=== PATIENT | female | born 1990 | race Caucasian/White ===

== ENCOUNTER → 2022-01-13 13:19 | Outpatient (BNVA) | payer OTHER, SELFPAY | PROVIDERS: Visit Provider Obstetrics & Gynecology | DX: Z34.90 Encounter for supervision of normal pregnancy, unspecified, unspecified trimester (principal) | CPT/HCPCS: 80307; 84315; 84443; 85025; 86592; 86762; 86803; 86850; 86900; 87086; 87340; 87491; 87591; 87624; 87661; 87806 ==

== ENCOUNTER → 2022-02-21 13:14 | Outpatient (BNVA) | payer OTHER, SELFPAY | PROVIDERS: Visit Provider Obstetrics & Gynecology | DX: O09.899 Supervision of other high risk pregnancies, unspecified trimester (principal); E03.9 Hypothyroidism, unspecified; Z3A.00 Weeks of gestation of pregnancy not specified | CPT/HCPCS: 84443 ==

== ENCOUNTER → 2022-04-09 10:40 | Outpatient (BNVA) | payer OTHER, SELFPAY | PROVIDERS: Visit Provider Obstetrics & Gynecology | DX: O09.899 Supervision of other high risk pregnancies, unspecified trimester (principal); Z3A.00 Weeks of gestation of pregnancy not specified | CPT/HCPCS: 82950; 84315; 84443; 85025 ==

== ENCOUNTER → 2022-05-05 08:25 | Outpatient (BNVA) | payer OTHER, SELFPAY | PROVIDERS: Visit Provider Obstetrics & Gynecology | DX: O09.899 Supervision of other high risk pregnancies, unspecified trimester (principal); Z3A.00 Weeks of gestation of pregnancy not specified | CPT/HCPCS: 84315; 87086 ==

== ENCOUNTER → 2022-05-19 16:00 | Outpatient (BNVA) | payer OTHER, SELFPAY | PROVIDERS: Visit Provider Obstetrics & Gynecology | DX: O09.899 Supervision of other high risk pregnancies, unspecified trimester (principal); Z3A.00 Weeks of gestation of pregnancy not specified | CPT/HCPCS: 84315; 85025; 87086 ==

== ENCOUNTER → 2022-06-04 15:50 | Outpatient (BNVA) | payer OTHER, SELFPAY | PROVIDERS: Visit Provider Obstetrics & Gynecology | DX: O09.899 Supervision of other high risk pregnancies, unspecified trimester (principal); Z3A.00 Weeks of gestation of pregnancy not specified | CPT/HCPCS: 84315; 87081; 87086 ==

== ENCOUNTER → 2022-06-12 12:00 | Outpatient (BNVA) | payer OTHER, SELFPAY | PROVIDERS: Visit Provider Obstetrics & Gynecology | DX: O09.899 Supervision of other high risk pregnancies, unspecified trimester (principal); Z3A.00 Weeks of gestation of pregnancy not specified | CPT/HCPCS: 84315; 87086 ==

== ENCOUNTER 2022-06-15 09:36 | Inpatient (IN) | payer OTHER, SELFPAY ==
[2022-06-15] VITALS (51 sets, daily range): BP systolic 88–139; BP diastolic 51–98; PULSE 67–121; RESP 16; BMI 39.4
[2022-06-15] MEDS: dextrose 5%-lactated ringers 1,000 ML 125 ML IV (09:58)
[2022-06-15] MEDS: ampicillin 2,000 MG in sodium chloride 0.9% (plus) 50 ML 100 MG IV (09:58)
[2022-06-15 10:22] LABS: Basophils % 0.2 %; Eosinophils # 0.1 10^3/uL (0.0-0.8); Eosinophils % 1.3 %; Hematocrit 35.7 % (37.0-47.0); Lymphocytes # 1.7 10^3/uL (0.8-4.8); Lymphocytes % 16.3 %; Mean Corpuscular HGB Conc 33.6 g/dL (30.0-36.0); Mean Corpuscular Hemoglobin 30.8 pg (28.0-34.0); Mean Corpuscular Volume 91.5 fl (81-99); Mean Platelet Volume 10.8 fL (7.4-10.4); Monocytes # 0.7 10^3/uL (0.2-0.9); Monocytes % 6.9 %; Neutrophils # 7.68 10^3/uL (1.8-7.7); Neutrophils % 74.5 %; Nucleated Red Blood Cells % 0 %; Platelet Count 217 10^3/cmm (130-400); White Blood Count 10.3 10^3/uL (4.0-10.0)
--- NOTE | 2022-06-15 11:05 | PM.OBGYHP ---
Providers/Chief Complaint Admitting Physician: Roxanne Ramos DO Chief Complaint: DECREASED MOVEMENT, PELVIC PAIN AND PRESSURE HPI ER REGISTRAR History of Present Illness Kenyatta Win is a 31 year old female at 37.6wks IUP, patient of Dr. Babb, admitted to labor and delivery with complaints of decreased movement noted at 2:30 AM. Patient also complains of pelvic pain and pressure. She denies vaginal bleeding, but states she has noted her underwear being moist over the last several days. She states she was 4 cm at her last visit. After arrival at labor and delivery and being put on external monitoring patient does note movement. course?diagnosed with hypothyroid by lab, asymptomatic per patient. Was treated with levothyroxine. On initial vaginal exam patient cervix is noted to be 5 cm / 50%/-2 vertex presentation. EFM?category 1, with contractions every 4 to 6 minutes. Present Details : 3 Para: 2 Labs Rubella: Immune RPR: Negative GBS: Positive Review of Systems General: Reports: 10 or more systems reviewed and unremarkable except in HPI and below Medications/Allergies Home Medications Medication Instructions Recorded Confirmed Last Taken Type PNV 153-FA 400 mcg-om3 35 mg-dha 1 tab PO DAILY 01/13/22 06/15/22 06/15/22 07:00 History 25 mg-epa 5 mg-fish oil chew tablet ( Gummies) levothyroxine 50 mcg tablet 50 mcg PO DAILY #90 tabs 03/12/22 06/15/22 06/15/22 07:00 Rx aripiprazole 5 mg tablet (Abilify) 5 mg PO DAILY #90 tabs 05/15/22 06/15/22 06/15/22 07:00 Rx lamotrigine 200 mg tablet 200 mg PO DAILY #90 tabs 05/15/22 06/15/22 06/15/22 07:00 Rx Allergies Allergy/AdvReac Type Severity Reaction Status Date / Time No Known Allergies Allergy Verified 06/12/22 10:57 PFSH ER REGISTRAR PFSH: Medical History History of bipolar disorder No pertinent past medical history neghx: htn,dm,thyroid,dvt/pe PCP: None Psychiatric care Tobacco abuse Surgical History Hx laparoscopic cholecystectomy (~2011) Family History Grandmother Breast cancer Maternal---dx age 62 Grandfather Diabetes Maternal Denies family history of Colon cancer Ovarian cancer Heart disease Hypercholesteremia Hypertension Uterine cancer Thyroid disease Stroke Other Female Reproductive History: Date of Last Menstrual Period: 09/06/21 History History History 3 Term 1 1 Miscarriages/Ectopic 0 Living Children 2 Care PIERCE Calculator Estimated Delivery Date Method Current WG Current Estimate 06/29/22 Ultrasound #1 38w 0d Comments: PIERCE based on 15-week ultrasound. Vitals/I&O/Wt Last Vital Signs Pulse 80 06/15/22 11:01 Resp 16 06/15/22 09:21 BP 107/66 06/15/22 11:01 O2 Del Method 06/15/22 09:38 Weight last 48 hrs Weight 101.151 kg Physical Exam Narrative: 31-year-old female awake and alert no acute distress Const: COMMON NORMALS: patient oriented x3, no limitations, healthy appearing and well nourished HENMT: COMMON NORMALS: normocephalic and moist oral mucous membranes Resp: COMMON NORMALS: normal respiratory effort and clear to auscultation bilaterally Cardio: COMMON NORMALS: regular rate and regular rhythm Back/Pelvis: OTHER: Pelvic exam?as above Extremity: COMMON NORMALS: normal to inspection, no clubbing, cyanosis or edema, no calf tenderness and no pedal edema Neuro: COMMON NORMALS: CN's II-XII intact bilaterally, moves all extremities and deep tendon reflexes 2+ bilaterally Psych: COMMON NORMALS: mental status grossly normal Data 06/15/22 09:45 A&P Assessment and plan (1) GBS (group B Streptococcus carrier), +RV culture, currently : (2) Generalized anxiety disorder: (3) Post-traumatic stress disorder, chronic: (4) History of delivery: (5) Supervision of other high-risk : (6) Hypothyroidism: Plan A. 1. 37.6 weeks IUP in early labor 2. GBS positive 3. Hypothyroidism during 4. History of anxiety 5. History of delivery P. 1. Admit to labor and delivery for management of labor 2. GBS treatment according to protocol Attestations Medical Necessity Statement*: Admission to labor and delivery for management of labor Coding Level of Care Code Acute Associate Quality Engineer for Chg Fwd History Problem Focused Exam Problem Focused Medical Decision Making Straight Forward Diagnoses GBS (group B Streptococcus carrier), +RV culture, currently O99.820 Generalized anxiety disorder F41.1 Post-traumatic stress disorder, chronic F43.12 History of delivery Z87.51 Supervision of other high-risk O09.899 Hypothyroidism E03.9
[2022-06-15] MEDS: ampicillin 1,000 MG in sodium chloride 0.9% (plus) 50 ML 100 MG IV (13:41)
--- NOTE | 2022-06-15 15:05 | P.PN_ITS ---
E BUSINESS PROJECT MANAGER Subjective Labor: Dilation (cm): 5 Effacement (%): 80 Station: -3 Amniotic Membrane Status: Bulging (AROM with clear fluid noted.) Monitor Mode: External Contraction Pattern: Irregular Vitals/I&O/Wt Last Vital Signs Pulse 106 H 06/15/22 15:01 Resp 16 06/15/22 09:21 BP 104/65 06/15/22 15:01 O2 Del Method 06/15/22 09:38 Weight last 48 hrs Weight 101.151 kg Data 06/15/22 09:45 Attestations Medical Necessity Statement*: Management of labor Coding Level of Care Code Acute Metal Milling Machine Operator for g Theresa
[2022-06-15] MEDS: oxytocin 30 UNIT/500 ML BAG IV (16:14)
--- NOTE | 2022-06-15 17:34 | PM.DELIVERY ---
Delivery Note: Date of delivery: June 15, 2022 Pre-delivery diagnoses: 1. 37.6 weeks IUP 2. Active labor 3. GBS positive 4. Hypothyroidism 5. History of anxiety Procedure: Spontaneous vaginal delivery viable male Delivering Physician: Dr. Roxanne Ramos Estimated blood loss (mL): 300 Delivery: 31-year-old female delivered via a viable male OA presentation. Vertex delivered over perineum and after several pushes the anterior followed by the posterior shoulders delivered with the remainder of the baby's body to follow. Spontaneous cry was noted. The umbilical cord was clamped and cut and baby placed on mother's chest for bonding. Nursing evaluation with drying of the infant and bulb suctioning occurred. Cord blood was drawn from the umbilical umbilical cord and handed off. The uterine fundus was massaged and the placenta presented in a Arvizu presentation with trailing membranes. Three-vessel cord was noted. The vaginal vault was explored and a second-degree midline laceration was noted, repaired with 3-0 Vicryl with good approximation. Good hemostasis was noted. The uterus was massaged, noted to be firm with minimal bleeding. Pitocin IV solution was started and a bolus manner after delivery of placenta. Mother and infant are both in stable and satisfactory condition. Apgars 8/9 weight 7 pounds 11 anesthesia?none EBL 300 Post-Delivery Status: Stable doing well History History History 3 Term 1 1 Miscarriages/Ectopic 0 Living Children 2 A&P Assessment and plan (1) GBS (group B Streptococcus carrier), +RV culture, currently : (2) Generalized anxiety disorder: (3) History of delivery: (4) Supervision of other high-risk : (5) Hypothyroidism: Plan A. Spontaneous vaginal delivery viable male at 37.6 weeks gestation. GBS positive P. Routine orders Coding Level of Care Code Acute Industrial Engineer for Chg Fwd History Problem Focused Exam Problem Focused Medical Decision Making Straight Forward Diagnoses GBS (group B Streptococcus carrier), +RV culture, currently O99.820 Generalized anxiety disorder F41.1 History of delivery Z87.51 Supervision of other high-risk O09.899 Hypothyroidism E03.9
[2022-06-15] MEDS: lidocaine 2% INJ 20 mL INJECTION (17:35)
--- NOTE | 2022-06-15 20:10 | PC.NURSE ---
Patient was walking with RN out of bathroom to go to PP room. Patient states I feel dizzy. RN tells patient to have seat in chair and begins to help her sit. Patient kneels in floor and states that she can't get up. RN reassures patient that she is supporting her and patient is maintaining muscle tone and although she feels dizzy will be able to stand and sit in the chair. Patient stands and sits in chair. Vital Signs taken: RR 16, HR 82, BP 107/69. SpO2 98%. RN advises patient she can remain in LDRP room rather than transfer to PP room. PP mattress is applied to bed and linens are changed. Patient states she is now feeling better and is able to get into bed unassisted with RN standing by. RN advises patient to not get up unattended the next time she needs to use the bathroom to ensure she does not feel dizzy in the future. Call light placed within reach.
[2022-06-15] MEDS: ibuprofen 800 mg tablet PO (21:16)
[2022-06-15] MEDS: benzocaine-menthol 78 gm Canister 1 SPRAY TOPICAL (22:29)
[2022-06-16] VITALS (8 sets, daily range): BP systolic 104–114; BP diastolic 63–69; PULSE 72–83; RESP 15–16; TEMP 36.4–36.8
[2022-06-16 06:14] LABS: Hematocrit 31.8 % (37.0-47.0); Hemoglobin 10.4 g/dL (11.5-15.3); Mean Corpuscular HGB Conc 32.7 g/dL (30.0-36.0); Mean Corpuscular Hemoglobin 30.5 pg (28.0-34.0); Mean Corpuscular Volume 93.3 fl (81-99); Mean Platelet Volume 10.9 fL (7.4-10.4); Platelet Count 207 10^3/cmm (130-400); Red Blood Count 3.41 10^6/uL (4.1-5.3); Red Cell Distribution Width 13.2 % (12.1-15.1); White Blood Count 13.6 10^3/uL (4.0-10.0)
--- NOTE | 2022-06-16 11:37 | PM.OBGYPN ---
SLITTING MACHINE FEEDER Subjective Subjective: Interval history: Patient doing well has no complaints caring for infant without nursing assistance. Patient is tolerating regular diet and voiding. Denies headaches visual changes shortness of breath or chest pain. Labor: Dilation (cm): 5 Effacement (%): 80 Station: +1 Amniotic Membrane Status: Ruptured Monitor Mode: Palpation Contraction Pattern: Regular Post /CS: Patient comments OB post-: no complaints [place] baby status: doing well Vitals/I&O/Wt Last Vital Signs Pulse 78 06/16/22 08:00 Resp 16 06/16/22 08:57 BP 110/66 06/16/22 08:00 O2 Del Method 06/15/22 09:38 06/15/22 06/16/22 06/16/22 22:59 06:59 14:59 Intake Total 53.717 / 53.717 Output Total 1200 / 1200 Balance -1146.283 / -1146.283 Weight last 48 hrs Weight 101.151 kg Physical Exam Resp: COMMON NORMALS: clear to auscultation bilaterally AUSCULTATION: clear to auscultation bilaterally Cardio: COMMON NORMALS: regular rate and regular rhythm RATE: regular rate RHYTHM: regular rhythm Back/Pelvis: OTHER: Abdomen?soft, no tenderness to palpation. Fundal height 2 cm below umbilicus. Extremity: NARRATIVE EXTREMITY EXAM: Lower extremities?no edema, negative Homans' sign. Data 06/16/22 05:42 A&P Assessment and plan (1) GBS (group B Streptococcus carrier), +RV culture, currently : (2) Generalized anxiety disorder: (3) Post-traumatic stress disorder, chronic: (4) History of delivery: (5) Hypothyroidism: (6) Supervision of other high-risk : Plan A. 1. S/p viable male 2. day #1 3. Asymptomatic anemia P. Continue present care, probable discharge this p.m. after 1700 if no complaints. Attestations Medical Necessity Statement*: day #1?doing well Coding Level of Care Code Acute Manager Eligibility for Chg Fwd Exam Expanded Problem Focused Diagnoses GBS (group B Streptococcus carrier), +RV culture, currently O99.820 Generalized anxiety disorder F41.1 Post-traumatic stress disorder, chronic F43.12 History of delivery Z87.51 Hypothyroidism E03.9 Supervision of other high-risk O09.899
[2022-06-16] MEDS: ibuprofen 800 mg tablet PO ×2 (11:49→18:24)
[2022-06-16] MEDS: prenatal vitamin Capsule 1 CAP PO (11:49)
[2022-06-16] MEDS: docusate sodium 100 mg Capsule PO (11:49)
[2022-06-17] MEDS: ibuprofen 800 mg tablet PO ×2 (01:57→09:13)
[2022-06-17 05:09] VITALS: BP 101/66; PULSE 68
[2022-06-17 05:10] VITALS: RESP 16
[2022-06-17 09:13] VITALS: BP 107/64; PULSE 73
[2022-06-17] MEDS: prenatal vitamin Capsule 1 CAP PO (09:13)
[2022-06-17 09:20] VITALS: RESP 15; TEMP 36.4
--- NOTE | 2022-06-17 12:00 | PM.OBGYDC ---
Discharge Providers TROLLEY COACH DRIVER Date of Admission: 06/15/22 09:36 Date of Discharge: 06/17/22 Attending Provider at Admission: Roxanne Ramos DO Attending Provider at Discharge: Roxanne Ramos DO Diagnoses at Discharge Discharge Diagnosis (1) GBS (group B Streptococcus carrier), +RV culture, currently : Status: Acute (2) Generalized anxiety disorder: Status: Acute (3) Post-traumatic stress disorder, chronic: Status: Acute (4) History of delivery: Status: Acute (5) Hypothyroidism: Status: Acute (6) Supervision of other high-risk : Status: Acute (7) (spontaneous vaginal delivery): Details from hospital stay: see hospital course below. Status: Acute Reason for Visit Reason for Visit: DECREASED MOVEMENT, PELVIC PAIN AND PRESSURE Hospital Course Hospital Course 31-year-old female presented to labor and delivery with complaints of decreased movement and pelvic pressure. Patient's external monitoring was reassuring with category 1, pelvic exam revealed her cervix to be 5 cm 50% -2 vertex presentation. Patient progressed into active labor and was delivered via of a viable male on 06/15/2022. Patient's course has been uneventful, she is tolerating regular diet voiding ambulating and caring for her without assistance. expectations and discharge instructions have been reviewed in great detail, no heavy lifting pushing or pulling. Patient is to refrain from sexual intercourse x6 weeks. She is encouraged to wear a tight bra 24/ due to risk of breast engorgement. She is encouraged to shower daily. She is encouraged to continue her vitamins and iron and to resume her home meds. Patient verbalizes understanding as well as her . Information Peripartum Data: Delivery Method: Vaginal Laceration description: Perineal - 2nd Degree complications: none Physical Exam Back/Pelvis: OTHER: Abdomen?soft fundus firm well below umbilicus. Extremities?no edema, negative Homans' sign. History History History 3 Term 1 1 Miscarriages/Ectopic 0 Living Children 2 Discharge Data Studies Completed and Pending Pending at discharge Category Date Time Status Urinalysis and Microscopic Stat Lab 06/15/22 09:22 Ordered Laboratory Results WBC 13.6 10^3/uL (4.0-10.0) H 06/16/22 05:42 RBC 3.41 10^6/uL (4.1-5.3) L 06/16/22 05:42 Hgb 10.4 g/dL (11.5-15.3) L 06/16/22 05:42 Hct 31.8 % (37.0-47.0) L 06/16/22 05:42 MCV 93.3 fl (81-99) 06/16/22 05:42 MCH 30.5 pg (28.0-34.0) 06/16/22 05:42 MCHC 32.7 g/dL (30.0-36.0) 06/16/22 05:42 RDW 13.2 % (12.1-15.1) 06/16/22 05:42 Plt Count 207 10^3/cmm (130-400) 06/16/22 05:42 MPV 10.9 fL (7.4-10.4) H 06/16/22 05:42 Neut % (Auto) 74.5 % 06/15/22 09:45 Lymph % (Auto) 16.3 % 06/15/22 09:45 [place] % (Auto) 6.9 % 06/15/22 09:45 Eos % (Auto) 1.3 % 06/15/22 09:45 Baso % (Auto) 0.2 % 06/15/22 09:45 Neut # (Auto) 7.68 10^3/uL (1.8-7.7) 06/15/22 09:45 Lymph # (Auto) 1.7 10^3/uL (0.8-4.8) 06/15/22 09:45 [place] # (Auto) 0.7 10^3/uL (0.2-0.9) 06/15/22 09:45 Eos # (Auto) 0.1 10^3/uL (0.0-0.8) 06/15/22 09:45 Baso # (Auto) 0.0 10^3/uL (0.0-0.1) 06/15/22 09:45 Nucleated RBC % (auto) 0 % 06/15/22 09:45 Nucleated RBCs # 0.0 /100WBC 06/15/22 09:45 Vitals Last Vital Signs Temp 97.6 F 06/17/22 09:20 Pulse 73 06/17/22 09:13 Resp 15 06/17/22 09:20 BP 107/64 06/17/22 09:13 O2 Del Method 06/15/22 09:38 Discharge Plan Discharge Patient Disposition: Home Condition: Stable Prescriptions: Continued Gummies 400 mcg-35 mg- 25 mg-5 mg tablet,chewable 1 tab PO DAILY lamotrigine 200 mg tablet 200 mg PO DAILY Qty: 90 0RF aripiprazole [Abilify] 5 mg tablet 5 mg PO DAILY Qty: 90 0RF levothyroxine 50 mcg tablet 50 mcg PO DAILY Qty: 90 6RF Discharge Orders: Discharge Order (Routine); Ordered 06/17/22 Ordered By: Roxanne Ramos Referrals: Cecelia Babb MD [Physician] - 06/30/22 1:30 pm (2 week appointment 06/30/22 @ 1:30 6 week appointment 08/04/22 @ 2:00) Discharge Diet: Regular Discharge Activity: Limit activity as instructed Patient Instructions: Depression (DC), Opioid Safety (DC), Preeclampsia and Eclampsia After Delivery (GEN), Hemorrhage (DC), OB Discharge Report, OB Food/Drug Interaction Guide, OB Care at Home, Opioid Safety, OB Vaginal Deliveries - [facility], Abnormal Bleeding Discharge Attestations TROLLEY COACH DRIVER Time Spent in Discharge Care*: less than 30 min Coding Level of Care Code Acute Core Baker for Chg Fwd Diagnoses GBS (group B Streptococcus carrier), +RV culture, currently O99.820 Generalized anxiety disorder F41.1 Post-traumatic stress disorder, chronic F43.12 History of delivery Z87.51 Hypothyroidism E03.9 Supervision of other high-risk O09.899 (spontaneous vaginal delivery) O80
[2022-06-17 12:31] VITALS: BP 106/57; PULSE 75
[2022-06-17 12:45] VITALS: BP 106/57; PULSE 75
== END 2022-06-17 12:45 | disposition home or self-care (01) | DRG 807 ==
LOC: OPOB 09:37 → OBGYN 09:37
PROVIDERS: Absent Provider Obstetrics & Gynecology; Admitting Provider Obstetrics & Gynecology; Visit Provider Obstetrics & Gynecology
DX: O99.824 Streptococcus B carrier state complicating childbirth (principal); Z37.0 Single live birth; O99.284 Endocrine, nutritional and metabolic diseases complicating childbirth; E03.9 Hypothyroidism, unspecified; O99.344 Other mental disorders complicating childbirth; O70.1 Second degree perineal laceration during delivery; Z3A.37 37 weeks gestation of pregnancy; F41.1 Generalized anxiety disorder; F43.12 Post-traumatic stress disorder, chronic
CPT/HCPCS: 12345; 36415; 59025; 59409; 85025; 85027; 99211; J0290; J2590; J7121

== ENCOUNTER 2022-08-26 09:35 | Day surgery (SDC) | payer OTHER, SELFPAY ==
[2022-08-25 11:00] VITALS: BMI 39.1
[2022-08-26] VITALS (8 sets, daily range): BP systolic 97–136; BP diastolic 57–73; PULSE 66–85; RESP 12–19; TEMP 36.1–36.6; O2SAT 99–100
[2022-08-26 09:57] LABS: OR HCG Qualitative Urine Negative (Negative)
[2022-08-26] MEDS: acetaminophen 1,000 MG/100 ML PIGGYBACK 400 MG IV (10:08)
[2022-08-26] MEDS: CELEcoxib 200 mg Capsule 400 MG PO (10:09)
[2022-08-26] MEDS: gabapentin 300 mg Capsule PO (10:09)
[2022-08-26] MEDS: phenazopyridine 100 mg Tablet 200 MG PO (10:10)
[2022-08-26] MEDS: sodium chloride 0.9% 1,000 ML 30 ML IV (10:11)
[2022-08-26] MEDS: scopolamine 1.5 Patch 1 PATCH TRANSDERMA (10:13)
--- NOTE | 2022-08-26 10:19 | ANES.PREANE2 ---
Pre-Anesthetic Assessment Height/Weight: Height 1.6 m Weight 100.244 kg Temp Pulse Resp BP Pulse Ox O2 Del Method 97.8 F 85 16 136/73 99 08/26/22 09:58 08/26/22 09:58 08/26/22 09:58 08/26/22 09:58 08/26/22 09:58 08/26/22 09:58 Preop Diagnosis: undesired fertility Operation Date: 08/26/22 11:10 Proposed Procedures p Laparoscopic bilateral salpingectomy 64068,Z30.2(Bilateral) - Cecleia Babb MD Familial anesthetic complications: None Was Beta Deborah taken within 24 hours: N/A Was Clonidine taken within 24 hours: N/A Last intake: Intake Last Liquid Date 08/25/22 Last Liquid Time 21:00 Last Solid Date 08/25/22 Last Solid Time 18:00 Social No alcohol and No tobacco Exam alert, oriented x 3, clear to auscultation bilaterally and regular rate & rhythm Airway Mallampati: Class II Dentition: chipped Comments: Comments: poor dentition Metabolic Morbid Obesity and Thyroid Disease Anesthetic Plan ASA status: 2 Anesthesia: General Risk of > 500 ml blood loss (7ml/kg in children): No Medications/Allergies Home Medications Medication Instructions Recorded Confirmed Last Taken Type levothyroxine 50 mcg tablet 50 mcg PO DAILY #90 tabs 03/12/22 08/25/22 08/25/22 Rx aripiprazole 5 mg tablet (Abilify) 5 mg PO DAILY #90 tabs 08/06/22 08/25/22 08/25/22 Rx lamotrigine 200 mg tablet 200 mg PO DAILY #90 tabs 08/06/22 08/25/22 08/25/22 Rx propranolol 10 mg tablet 10 mg PO BID #180 tabs 08/06/22 08/25/22 08/25/22 Rx Allergies Allergy/AdvReac Type Severity Reaction Status Date / Time No Known Allergies Allergy Verified 08/26/22 09:52 Current Medications Generic Name Dose Route Start Last Admin Trade Name Freq PRN Reason Stop Dose Admin Sodium Chloride 1,000 mls @ 30 mls/hr 08/26/22 10:00 08/26/22 10:11 Sodium Chloride 0.9% IV 08/27/22 09:59 30 mls/hr .Q24H LARRY Administration PFSH Anesthesia Medical History GBS (group B Streptococcus carrier), +RV culture, currently History of bipolar disorder History of delivery No pertinent past medical history neghx: htn,dm,thyroid,dvt/pe PCP: None Psychiatric care Supervision of other high-risk (spontaneous vaginal delivery) Tobacco abuse Surgical History Hx laparoscopic cholecystectomy (~2011) Family History Grandmother Breast cancer Maternal---dx age 62 Grandfather Diabetes Maternal Denies family history of Colon cancer Ovarian cancer Heart disease Hypercholesteremia Hypertension Uterine cancer Thyroid disease Stroke Female Reproductive History Date of last menstrual period: 08/14/22 Data Anesthesia Cardiac Studies: No Data to Display
--- NOTE | 2022-08-26 11:31 | W.PM.OPSUD ---
Surgery/Procedure H&P Update DATE OF PROCEDURE: August 26, 2022 DATE H&P PERFORMED: 08/21/22 H&P UPDATE INFORMATION: I have reviewed H&P completed within last 30 days, I have examined patient prior to procedure and No changes to prior documentation PREOP DIAGNOSIS: undesired fertility PLANNED PROCEDURE: Operation Date: 08/26/22 11:10 Proposed Procedures p Laparoscopic bilateral salpingectomy 18108,Z30.2(Bilateral) - Cecelia Babb MD Related Problem List Diagnoses (1) Sterilization consult:
[2022-08-26] MEDS: ceFAZolin 2,000 MG in sodium chloride 0.9% (plus) 50 ML 100 MG IV (12:21)
--- NOTE | 2022-08-26 13:29 | P.OP_ITS ---
Operative Report Date of procedure: August 26, 2022 Pre-op diagnosis: Preop Diagnosis undesired fertility Post-op diagnosis: same Post-op findings: normal appearing uterus, tubes and ovaries Procedure done: laparoscopic bilateral salpingectomy Specimens removed/disposition: bilateral fallopian tubes to pathology Surgeon: Cecelia Babb Anesthesia: General Estimated blood loss (mL): 15 IV fluids (mL): 800 Urine output (mL): 100 Complications: none Condition: stable Disposition: PACU Procedure: The patient was taken to the operating room where general anesthesia was administered and found to be adequate. She was prepped and draped in the normal sterile fashion in the dorsal lithotomy position in [facility]. A Quintero catheter was placed. A weighted speculum was placed into the vagina and the anterior lip of the cervix grasped with a single-tooth tenaculum. A ZUMI uterine manipulator was placed. The gloves were changed and attention was turned to the laparoscopic portion of the case. A 5 mm supraumbilical incision was made. The 5 mm trocar was placed using the easy view trocar. Intra-abdominal placement was confirmed and CO2 gas was used to insufflate the abdomen. Using direct visualization and illumination of the abdominal wall, two 5 mm incisions were made low and lateral. One on the left and one on the right. The 5mm trochars were then placed under direct visualization. Using the uterine manipulator and the grasper, the fallopian tubes were identified. Using the laparoscopic cautery, the fallopian tube was clamped cauterized and cut. First on the right, then on the left. There was excellent hemostasis post removal of the bilateral tubes. Pictures were taken. All instruments were removed. The abdomen was desufflated. The incisions were closed with 4-0 Vicryl. 10 ml of 1/2% bupivicaine was used around the incisions. The patient tolerated the procedure well. Sponge lap and needle counts were correct x3. She was taken to the recovery room in stable condition.
--- NOTE | 2022-08-26 13:35 | PM.DCS ---
Discharge Providers Date of Admission: 08/26/22 Date of Discharge: August 26, 2022 Attending Provider at Discharge: Cecelia Babb MD Diagnoses at Discharge Discharge Diagnosis (1) Sterilization consult: Status: Acute Hospital Course Hospital Course The patient was admitted for surgery. She did well postoperatively and was ready for discharge. Physical Exam Urinary Catheter Management: Quintero: Cath Placed During This Visit: yes, but has since been removed by the nurse Urinary Catheter Date of Insertion: 08/26/22 Urinary Catheter Time of Insertion: 12:15 Date Urinary Catheter Removed: 08/26/22 Time Urinary Catheter Discontinued: 13:08 Discharge Data Studies Completed and Pending Pending at discharge Category Date Time Status Urinalysis Routine Lab 08/26/22 13:11 Ordered Pathology: Surgical [PTH] Routine Pth 08/26/22 13:08 Ordered Laboratory Results Urine HCG, Qual Negative (Negative) 08/26/22 09:56 Vitals Last Vital Signs Temp 97.8 F 08/26/22 09:58 Pulse 85 08/26/22 09:58 Resp 16 08/26/22 09:58 BP 136/73 08/26/22 09:58 Pulse Ox 99 08/26/22 09:58 O2 Del Method 08/26/22 09:58 Discharge Plan Discharge Condition: Stable Prescriptions: New hydrocodone-acetaminophen 5-325 mg tablet 1 tab PO Q4H PRN (Reason: pain) Qty: 30 0RF Continued propranolol 10 mg tablet 10 mg PO BID Qty: 180 0RF aripiprazole [Abilify] 5 mg tablet 5 mg PO DAILY Qty: 90 0RF lamotrigine 200 mg tablet 200 mg PO DAILY Qty: 90 0RF levothyroxine 50 mcg tablet 50 mcg PO DAILY Qty: 90 6RF Discharge Orders: Discharge Order (Routine); Ordered 08/26/22 Ordered By: Cecelia Babb Discharge Attestations Time Spent in Discharge Care*: less than 30 min Quality Metrics Clinical Quality Measures [ No reported AMI, CVA or VTE this stay] Coding Level of Care Code Acute Code for Chg Fwd Diagnoses Sterilization consult Z30.09
[2022-08-26 14:10] LABS: Add Urine Microscopic? YES; Urine Appearance Cloudy (CLEAR); Urine Color Orange (Yellow)
[2022-08-26 14:13] LABS: Bacteria Urine TRACE /hpf; Squamous Epithelial Cell Urine 0-4 /hpf (0-5)
--- NOTE | 2022-08-26 15:05 | ANE.PACU2 ---
Inpatient post-anesthesia follow up: Airway intact: Yes Vital signs: Temperature 97 F Pulse Rate 67 Respiratory Rate 16 Blood Pressure 98/60 Pulse Oximetry 100 Oxygen Delivery Me thod Room Air Oxygen Flow Rate 8 Fraction of Inspir ed Oxygen Hydration adequate: Yes Nausea and vomiting: No Pain level: 1 Mental status: Baseline
== END 2022-08-26 14:41 | disposition home or self-care (01) ==
PROVIDERS: Visit Provider Obstetrics & Gynecology
PROC: (CPT 58661; principal; 2022-08-26 11:00)
DX: Z30.2 Encounter for sterilization (principal); E66.01 Morbid (severe) obesity due to excess calories; Z68.39 Body mass index [BMI] 39.0-39.9, adult
CPT/HCPCS: 58661; 81001; 81025; 84703; 88302; J0131; J0330; J0690; J1100; J1200; J1885; J2250; J2405; J2710; J3010; J3490; J7030

== ENCOUNTER → 2022-09-01 09:41 | Outpatient (BNVA) | payer OTHER, SELFPAY | PROVIDERS: Visit Provider Obstetrics & Gynecology | DX: R39.9 Unspecified symptoms and signs involving the genitourinary system (principal); R82.90 Unspecified abnormal findings in urine | CPT/HCPCS: 81000; 87086 ==

== ENCOUNTER → 2022-09-05 09:00 | Outpatient (BNVA) | payer OTHER, SELFPAY | PROVIDERS: Visit Provider Obstetrics & Gynecology | DX: R82.90 Unspecified abnormal findings in urine (principal) | CPT/HCPCS: 87086 ==

== ENCOUNTER → 2024-01-12 09:03 | Outpatient (BNVA) | payer OTHER, SELFPAY | PROVIDERS: PCP Family Medicine Adult Medicine; Visit Provider Family Medicine Adult Medicine | DX: Z86.59 Personal history of other mental and behavioral disorders (principal); E03.9 Hypothyroidism, unspecified; D64.9 Anemia, unspecified; K02.9 Dental caries, unspecified | CPT/HCPCS: 80053; 84443; 85025 ==

== ENCOUNTER → 2025-05-22 15:32 | Outpatient (BNVA) | payer OTHER, SELFPAY | PROVIDERS: PCP Family Medicine Adult Medicine | DX: E03.9 Hypothyroidism, unspecified (principal) | CPT/HCPCS: 80053; 80061; 84443; 85025 ==

== ENCOUNTER → 2025-05-23 11:21 | Outpatient (BNVA) | payer OTHER, SELFPAY | PROVIDERS: PCP Family Medicine Adult Medicine | DX: E03.9 Hypothyroidism, unspecified (principal) | CPT/HCPCS: 83036; 85025 ==